=== PATIENT | male | born 2005 | race Caucasian/White ===

== ENCOUNTER 2024-04-27 17:29 | Emergency (ER) | payer BC, MEDICAID, SELFPAY ==
[2024-04-27 17:45] VITALS: BP 145/83; PULSE 74; RESP 14; TEMP 36.9; O2SAT 96; BMI 22.8
--- NOTE | 2024-04-27 18:21 | XRR_ITS ---
PROCEDURE INFORMATION: Exam: XR Abdomen Exam date and time: 04/27/2024 6:39 PM Age: 18 years old Clinical indication: Abdominal pain; Generalized; Additional info: Vomiting TECHNIQUE: Imaging protocol: Radiologic exam of the abdomen. Views: Frontal supine view of the abdomen. 1 View. COMPARISON: No relevant prior studies available. FINDINGS: Gastrointestinal tract: Normal. No bowel dilation. Bones/joints: Unremarkable. XR/XR KUB [id number] IMPRESSION: No acute findings.
--- NOTE | 2024-04-27 18:22 | W.ED.NAVMDI ---
HPI - Nausea/Vomiting/Diarrhea General: Chief complaint: Nausea/Vomiting/Diarrhea Stated complaint: vomitting Time Seen by Provider: 04/27/24 17:59 Source: patient Mode of arrival: ambulatory Limitations: no limitations History of Present Illness: 18-year-old male who states that he had an overdose back in January he states that since then he has been having GI distress. He states he has nausea and vomiting anytime he eats. He states only thing that seems to help his marijuana states he has not smoked in over a week and has been feeling nauseous every time he eats he denies any pain denies any fever. Related Data Previous Rx's ?Medication ?Instructions ?Recorded ondansetron 4 mg disintegrating 4 mg PO Q6H PRN nausea and 04/27/24 tablet vomiting #14 tabs Allergies Allergy/AdvReac Type Severity Reaction Status Date / Time No Known Allergies Allergy Verified 04/27/24 17:56 Course Vital Signs: Vital signs: Vital Signs Temperature 98.4 F 04/27/24 17:45 Pulse Rate 71 04/27/24 19:08 Respiratory Rate 16 04/27/24 19:08 Blood Pressure 138/79 04/27/24 19:08 Pulse Oximetry 99 04/27/24 19:08 Oxygen Delivery Me thod Room Air 04/27/24 17:45 MDM - Nausea/Vomiting/Diarrhea Medical Decision Making Patient presents here with vomiting is been going on for months he is well-appearing here exam is benign CT is normal he is to follow-up with PCP and return if worsening he under stands agrees to plan will prescribe him Zofran. Medical Records I reviewed the patient's medical records. Lab Data I reviewed the patient's lab results. 04/27/24 18:40 04/27/24 18:40 Radiology Impressions KUB X-Ray 04/27/24 18:21 IMPRESSION: No acute findings. Laboratory Results WBC 11.45 10^3/uL (4.5-13.0) 04/27/24 18:40 RBC 5.65 10^6/uL (3.85-5.65) 04/27/24 18:40 Hgb 17.10 g/dL (13.2-15.6) H 04/27/24 18:40 Hct 48.6 % (37-53) 04/27/24 18:40 MCV 86.0 fl (82-101) 04/27/24 18:40 MCH 30.3 pg (27-33) 04/27/24 18:40 MCHC 35.2 g/dL (30-55) 04/27/24 18:40 RDW 11.9 % (12.1-15.1) L 04/27/24 18:40 Plt Count 375 10^3/cmm (157-399) 04/27/24 18:40 MPV 8.9 fL (7.4-10.4) 04/27/24 18:40 Neut % (Auto) 71.1 % 04/27/24 18:40 Lymph % (Auto) 18.3 % 04/27/24 18:40 [place] % (Auto) 9.4 % 04/27/24 18:40 Eos % (Auto) 0.4 % 04/27/24 18:40 Baso % (Auto) 0.5 % 04/27/24 18:40 Neut # (Auto) 8.14 10^3/uL (1.8-8.0) H 04/27/24 18:40 Lymph # (Auto) 2.1 10^3/uL (1.5-6.5) 04/27/24 18:40 [place] # (Auto) 1.1 10^3/uL (0.2-0.9) H 04/27/24 18:40 Eos # (Auto) 0.1 10^3/uL (0.0-0.8) 04/27/24 18:40 Baso # (Auto) 0.1 10^3/uL (0.0-0.1) 04/27/24 18:40 Nucleated RBC % (auto) 0 % 04/27/24 18:40 Nucleated RBCs # 0.0 /100WBC 04/27/24 18:40 Sodium 141 mmol/L (136-145) 04/27/24 18:40 Potassium 4.4 mmol/L (3.5-5.1) 04/27/24 18:40 Chloride 100 mmol/L (98-107) 04/27/24 18:40 Carbon Dioxide 27 mmol/L (22-29) 04/27/24 18:40 Anion Gap 18.4 (5-19) 04/27/24 18:40 BUN 15 mg/dL (6-20) 04/27/24 18:40 Creatinine 0.7 mg/dL (0.7-1.2) 04/27/24 18:40 GFR Calculation 145.3 mL/min (90-130) H 04/27/24 18:40 Glucose 99 mg/dL (65-115) 04/27/24 18:40 Calculated Osmolality 293 mOsm/kg (285-295) 04/27/24 18:40 Calcium 10.7 mg/dL (8.5-10.5) H 04/27/24 18:40 Total Bilirubin 0.6 mg/dL (0.15-1.2) 04/27/24 18:40 AST 15 U/L (0-40) 04/27/24 18:40 ALT 17 U/L (0-41) 04/27/24 18:40 Alkaline Phosphatase 98 U/L (40-130) 04/27/24 18:40 Total Protein 8.3 g/dL (6.6-8.7) 04/27/24 18:40 Albumin 5.0 g/dL (3.5-5.2) 04/27/24 18:40 Globulin 3.3 g/dL (1.3-4.6) 04/27/24 18:40 Lipase 37 U/L (13-60) 04/27/24 18:40 No radiology studies performed this visit Discharge Plan Discharge Patient Disposition: Home Clinical Impression: Vomiting Condition: Stable Prescriptions: New ondansetron 4 mg tablet,disintegrating 4 mg PO Q6H PRN (Reason: nausea and vomiting) Qty: 14 0RF Discharge Orders: Discharge ED (Routine); Ordered 04/27/24 Ordered By: Jess Paz Discharge Diet: Advance as tolerated Discharge Activity: Resume usual activity Patient Instructions: Acute Nausea and Vomiting (ED) Print Language: Romansh Coding Level of Care Code ED [employer] for [employer] Sykes
[2024-04-27] MEDS: ondansetron 2 mg/ML SDV 2 mL 4 MG IVP (18:46)
[2024-04-27 18:48] LABS: Basophils # 0.1 10^3/uL (0.0-0.1); Basophils % 0.5 %; Eosinophils # 0.1 10^3/uL (0.0-0.8); Eosinophils % 0.4 %; Hematocrit 48.6 % (37-53); Lymphocytes # 2.1 10^3/uL (1.5-6.5); Lymphocytes % 18.3 %; Mean Corpuscular HGB Conc 35.2 g/dL (30-55); Mean Corpuscular Hemoglobin 30.3 pg (27-33); Mean Platelet Volume 8.9 fL (7.4-10.4); Monocytes # 1.1 10^3/uL (0.2-0.9); Monocytes % 9.4 %; Neutrophils # 8.14 10^3/uL (1.8-8.0); Neutrophils % 71.1 %; Nucleated Red Blood Cells % 0 %; Platelet Count 375 10^3/cmm (157-399); Red Blood Count 5.65 10^6/uL (3.85-5.65); Red Cell Distribution Width 11.9 % (12.1-15.1); White Blood Count 11.45 10^3/uL (4.5-13.0)
[2024-04-27 19:08] VITALS: BP 138/79; PULSE 71; RESP 16; O2SAT 99
[2024-04-27 19:10] LABS: Alanine Aminotransferase 17 U/L (0-41); Alkaline Phosphatase 98 U/L (40-130); Anion Gap 18.4 (5-19); Aspartate Amino Transferase 15 U/L (0-40); Blood Urea Nitrogen 15 mg/dL (6-20); Calcium 10.7 mg/dL (8.5-10.5); Carbon Dioxide 27 mmol/L (22-29); Chloride 100 mmol/L (98-107); Creatinine Clr Calc Pharmacy 179.9049; Globulin 3.3 g/dL (1.3-4.6); Glomerular Filtration Rate 145.3 mL/min (90-130); Glucose 99 mg/dL (65-115); Lipase 37 U/L (13-60); Osmolality Calculated 293 mOsm/kg (285-295); Potassium 4.4 mmol/L (3.5-5.1); Sodium 141 mmol/L (136-145); Total Bilirubin 0.6 mg/dL (0.15-1.2); Total Protein 8.3 g/dL (6.6-8.7)
== END 2024-04-27 19:38 | disposition home or self-care (01) ==
PROVIDERS: Emergency Provider Emergency Medicine
DX: R11.2 Nausea with vomiting, unspecified (principal)
CPT/HCPCS: 36415; 74018; 80053; 83690; 85025; 96374; 99284; J2405

== ENCOUNTER 2024-08-29 14:44 | Emergency (ER) | payer MEDICAID, SELFPAY ==
--- NOTE | 2024-08-29 14:51 | XR_ITS ---
WS: [id number] Exam: XR ankle LT min 3V* [id number] Date/Time of Exam: 08/29/2024 3:38 PM Reason For Exam: pain No acute fracture. Lateral soft tissue swelling. The ankle mortise is equidistant. XR/XR ankle LT min 3V* [id number] IMPRESSION: 1. Lateral soft tissue swelling-no acute fracture.
[2024-08-29 15:06] VITALS: BP 124/77; PULSE 81; RESP 17; TEMP 36.8; O2SAT 99; BMI 23.0
--- NOTE | 2024-08-29 15:10 | ED_ITS ---
HPI - Extremity Injury (Lower) General: Chief Complaint: Extremity Injury, Lower Stated Complaint: L ankle pain Time Seen by Provider: 08/29/24 15:10 Source: patient Mode of arrival: ambulatory Limitations: no limitations History of Present Illness: Patient is a 19-year-old male who reports to the ED with left ankle pain. Last night, patient was running outside when he inverted his left ankle. He states it immediately swelled, but he was able to still bear most of his weight on his ankle. He has used ice and made a homemade splint, which has helped with the swelling. He is not taking anything else for the pain. He denies any numbness, tingling, color changes. complaint: ankle injury (L ankle) Onset (ago): day(s) (yesterday) Injury: Left: ankle Type of Injury: inversion Place: street/outdoors Severity: mild Relieving factors: cold therapy Exacerbating factors: weight bearing and movement (eversion) Context: running Associated symptoms: Reports no associated symptoms and swelling Other symptoms: none Treatments prior to arrival: cold therapy and splint Related Data Home Medications ?Medication ?Instructions ?Recorded ?Confirmed No Known Home Medications 06/20/2406/07 Allergies Allergy/AdvReac Type Severity Reaction Status Date / Time No Known Allergies Allergy Verified 08/29/24 15:08 Review of Systems Musc: Reports: joint pain (lateral L ankle) and joint swelling (lateral L ankle); Denies: extremity pain, extremity swelling or limited range of motion Neuro: Denies: numbness in extremities, weakness in extremities or sensory changes [facility] ED PFSH: Medical History Bradyarrhythmia MDD (major depressive disorder) Nicotine use disorder PTSD (post-traumatic stress disorder) Dissociative identity disorder Social History Smoking and tobacco/nicotine status: current every day tobacco/nicotine user Quit status (tobacco/nicotine): not considering quitting Second hand smoke exposure: No Alcohol intake: never Substance/Drug Use: never Lives independently: Yes Marital status: Single Number of children: 0 Highest education level completed: High School Graduate Current occupational status: employed Current occupational exposures/hazards: No Current gender identity: Male Physical Exam Const: COMMON NORMALS: no acute distress, average body habitus, patient oriented x3, no limitations, healthy appearing and well nourished GENERAL APPEARANCE: cooperative Extremity: COMMON NORMALS: capillary refill normal, no clubbing, cyanosis or edema, no calf tenderness and no pedal edema GENERAL: Yes normal exam except as noted LEFT LOWER EXTREMITY: Yes ankle joint Left ankle: Yes inspection (mild swelling lateral malleolus), Yes palpation (tenderness to lateral malleolus; mild edema), Yes ROM (full ROM with pain) and Yes neurovascular exam (normal) Neuro: COMMON NORMALS: patient oriented x3, moves all extremities, no focal motor deficits and no sensory deficits noted Course Vital Signs: Vital signs: Vital Signs Temperature 98.2 F 08/29/24 15:06 Pulse Rate 81 08/29/24 15:06 Respiratory Rate 17 08/29/24 15:06 Blood Pressure 124/77 08/29/24 15:06 Pulse Oximetry 99 08/29/24 15:06 Oxygen Delivery Me thod Room Air 08/29/24 15:06 MDM - Extremity Injury (Lower) Medical Decision Making Personal interpretation of patient's left ankle XR is unremarkable. He will be provided an KENIA wrap, crutches with directions for weight-bear as tolerated, discussed RICE therapy. Follow-up with primary care in 1 to 2 weeks if symptoms or not improving. Medical Records I reviewed the patient's medical records. XR interpretation done by ED provider, pending radiology final review Discharge Plan Discharge Patient Disposition: Home Clinical Impression: Left ankle sprain Qualifiers: Encounter type: initial encounter Involved ligament of ankle: unspecified ligament Qualified Code(s): S93.402A - Sprain of unspecified ligament of left ankle, initial encounter Condition: Stable Prescriptions: No Action No Known Home Medications Discharge Orders: Discharge ED (Routine); Ordered 08/29/24 Ordered By: Brenda Cruz Referrals: Merlin Forbes MD [Primary Care Provider, Family Practice] Patient Instructions: Ankle Sprain (DC), RICE Therapy Print Language: Citizen Of [place] Coding Level of Care Code ED Religious Activities Director for Mg Sykes
[2024-08-29 16:06] VITALS: BP 110/62; PULSE 71; O2SAT 98
== END 2024-08-29 16:08 | disposition home or self-care (01) ==
PROVIDERS: Emergency Provider Physician Assistant; PCP Family Medicine
DX: S93.402A Sprain of unspecified ligament of left ankle, initial encounter (principal); Z72.0 Tobacco use; X58.XXXA Exposure to other specified factors, initial encounter
CPT/HCPCS: 73610; 99283